=== PATIENT | male | born 1985 | race Caucasian/White ===

== ENCOUNTER 2016-12-01 11:22 | Emergency (ER) | payer OTHER ==
[~2016-12-01 11:22] MED LIST: AMOX500T PO; DIAZ10 PO; LEVI20TA PO; METH10TA PO
[2016-12-01 11:25] VITALS: BP 155/100; PULSE 84; RESP 16; TEMP 98.2; O2SAT 98
--- NOTE | 2016-12-01 11:34 | PD ---
Physical Exam Date Seen by Provider: Dec 01, 2016 Time Seen by Provider: 11:32 Narrative Pt presents after a slip and fall in the shower yesterday. He presents c/o headache, vision changes, nausea. Pt states he had a previous TBI. Symptoms started last night. VSS awaiting bed placement. Data Data Last Documented VS Vital Signs Date Time Temp Pulse Resp B/P (MAP) Pulse Ox O2 Delivery O2 Flow Rate FiO2 12/01/16 11:25 98.2 84 16 155/100 (118) 98 MDM Supervised Visit with SUSHIL: Ailin Jenkins Dec 01, 2016 11:34
[2016-12-01] MEDS ORDERED: VALT1TAB PO (12:12)
--- NOTE | 2016-12-01 12:24 | PD ---
HPI Chief Complaint: Fall Time Seen by Provider: 12:17 Travel History International Travel<30 days: No Contact w/Intl Traveler<30days: No Traveled to known affect area: No History of Present Illness HPI Yesterday morning this patient slipped in the shower and fell backwards. He hit the back of his head on the ground. He did not lose consciousness. He does complain of headache. Not having neck pain. He only complaint is minor soreness to the right elbow but that is mild. Symptoms severity is moderate in terms of headache. He has history of traumatic brain injury. No alleviating factors. Duration 28 hours PFSH Past Medical History ADHD: Yes Bipolar Disorder: Yes Anxiety: Yes Depression: Yes Chemotherapy: Yes ([facility] [place] RE: HEPATITIS) Diminished Hearing: No Hepatitis: Yes (HEP C) Psychiatric: Yes Immunizations Current: Yes Schizophrenia: Yes (SCHIZOAFFECTIVE) Past Surgical History Cholecystectomy: Yes Social History Alcohol Use: Yes (TWICE A MONTH AT LEAST ) Tobacco Use: Yes (1 PPD) Substance Use: Yes (POLY SUBSTANCE ABUSE) Allergies-Medications (Allergen,Severity, Reaction): Coded Allergies: iodine (Unverified Allergy, Severe, Anaphylaxis, 12/01/16) potassium iodide (Unverified Allergy, Severe, Anaphylaxis, 12/01/16) povidone-iodine (Unverified Allergy, Severe, Anaphylaxis, 12/01/16) sodium iodide (Unverified Allergy, Severe, Anaphylaxis, 12/01/16) sodium iodide (Unverified Allergy, Severe, Anaphylaxis, 12/01/16) grape (Unverified Allergy, Intermediate, 12/01/16) Reported Meds & Prescriptions Reported Meds & Active Scripts Active Levitra (Vardenafil) 20 Mg Tab 20 Mg PO DAILY PRN Reported Valtrex (Valacyclovir HCl) 1 Gm Tab 1,000 Mg PO BID Methadone (Methadone HCl) 10 Mg Tab 130 Mg PO DAILY Valium (Diazepam) 10 Mg Tab 10 Mg PO BID PRN Review of Systems General / Constitutional: No: Fever Eyes: No: Visual changes HENT: Positive: Headaches Cardiovascular: No: Chest Pain or Discomfort Respiratory: No: Shortness of Breath Gastrointestinal: No: Abdominal Pain Genitourinary: No: Dysuria Musculoskeletal: Positive: Pain Skin: No Rash Neurologic: Positive: Headache, No: Weakness Psychiatric: No: Depression Endocrine: No: Polydipsia Hematologic/Lymphatic: No: Easy Bruising Physical Exam Narrative GENERAL: Well-nourished, well-developed patient in no apparent distress. SKIN: Focused skin assessment reveals no rash and nodules. Skin is Warm and dry. HEAD: Atraumatic. Normocephalic. EYES: Pupils equal and round. No scleral icterus. No injection or drainage. ENT: No nasal bleeding or discharge. Mucous membranes pink and moist. NECK: Trachea midline. No JVD. No midline tenderness CARDIOVASCULAR: Regular rate and rhythm. No murmur appreciated. RESPIRATORY: No accessory muscle use. Clear to auscultation. Breath sounds equal bilaterally. GASTROINTESTINAL: Abdomen soft, non-tender, nondistended. Hepatic and splenic margins not palpable. MUSCULOSKELETAL: No obvious deformities. No clubbing. No cyanosis. No edema. NEUROLOGICAL: Awake and alert. No obvious cranial nerve deficits. Motor grossly within normal limits. Normal speech. PSYCHIATRIC: Appropriate mood and affect; insight and judgment normal. Data Data Last Documented VS Vital Signs Date Time Temp Pulse Resp B/P (MAP) Pulse Ox O2 Delivery O2 Flow Rate FiO2 12/01/16 12:00 Room Air 12/01/16 11:25 98.2 84 16 155/100 (118) [address] Brain W/O Iv Contrast(Rout) (12/01/16 ) MDM Medical Decision Making Medical Screen Exam Complete: Yes Emergency Medical Condition: Yes Medical Record Reviewed: Yes Differential Diagnosis Intracranial hemorrhage, skull fracture, concussion Narrative Course I have reviewed the patient's electronic medical record. Patient is neurologically intact but had head injury complaining of persistent headache for [address] was done for this reason. Brain CT shows nothing acute Stable for outpatient follow-up. Expect gradual resolution of his headache. Diagnosis Primary Impression: Head injury due to trauma Qualified Codes: S09.90XA - Unspecified injury of head, initial encounter Additional Impression: Headache Qualified Codes: G44.319 - Acute post-traumatic headache, not intractable Additional Instructions: The patient was advised to follow up with their physician and return if they worsen. Med/Other Pt SpecificInfo: Other Disposition: 01 DISCHARGE HOME Condition: Stable Julio Bedoya MD Dec 01, 2016 12:24
--- NOTE | 2016-12-01 12:54 | RADRPT ---
EXAM DATE/TIME: 12/01/2016 12:32 [facility] COMPARISON: CT BRAIN W/O CONTRAST, March 25, 2014, 19:55. INDICATIONS : Trauma; fall yesterday, cephalgia today. RADIATION DOSE: 56.35 CTDIvol (mGy) MEDICAL HISTORY : Hypertension. Hepatitis C. SURGICAL HISTORY : None. ENCOUNTER: Initial ACUITY: 1 day PAIN SCALE: 5/10 LOCATION: cranial TECHNIQUE: Multiple contiguous axial images were obtained of the head. Using automated exposure control and adj ustment of the mA and/or kV according to patient size, radiation dose was kept as low as reasonably a chievable to obtain optimal diagnostic quality images. DICOM format image data is available electro nically for review and comparison. FINDINGS: CEREBRUM: The ventricles are normal for age. No evidence of midline shift, mass lesion, hemorrhage or acute in farction. No extra-axial fluid collections are seen. POSTERIOR FOSSA: The cerebellum and brainstem are intact. The 4th ventricle is midline. The cerebellopontine angle i s unremarkable. EXTRACRANIAL: The visualized portion of the orbits is intact. SKULL: The calvaria is intact. No evidence of skull fracture. CONCLUSION: Negative for acute process. Boby Arnold MD FACR on December 01, 2016 at 12:41 Board Certified Radiologist. This report was verified electronically.
[2016-12-01 13:52] VITALS: BP 138/88
== END 2016-12-01 13:58 | disposition home or self-care (01) ==
LOC: NEPD 11:22
DX: S09.90XA Unspecified injury of head, initial encounter (principal); G44.319 Acute post-traumatic headache, not intractable; W18.2XXA Fall in (into) shower or empty bathtub, initial encounter; Y93.E1 Activity, personal bathing and showering
CPT/HCPCS: 70450; 99284

== ENCOUNTER 2017-01-27 07:01 | Emergency (ER) | payer OTHER ==
[~2017-01-27] VITALS: Ht 188 cm; Wt 109.0 kg
[~2017-01-27 07:01] MED LIST changes: -AMOX500T PO; +VALT1TAB PO
[2017-01-27 07:11] VITALS: BP 134/74; PULSE 106; RESP 24; TEMP 98.7; O2SAT 99
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
[2017-01-27 08:33] VITALS: BP 130/64
== END 2017-01-27 09:31 | disposition home or self-care (01) ==
LOC: NEPE 07:01
DX: G44.209 Tension-type headache, unspecified, not intractable (principal); F43.10 Post-traumatic stress disorder, unspecified; F41.9 Anxiety disorder, unspecified; F31.9 Bipolar disorder, unspecified; B19.20 Unspecified viral hepatitis C without hepatic coma; F25.9 Schizoaffective disorder, unspecified; F90.9 Attention-deficit hyperactivity disorder, unspecified type; F17.200 Nicotine dependence, unspecified, uncomplicated; Z79.899 Other long term (current) drug therapy
CPT/HCPCS: 70450; 99284